=== PATIENT | male | born 1955 | race Hispanic/Latino ===

== ENCOUNTER 2016-11-20 16:26 | Emergency (ER) | payer OTHER ==
[2016-11-20 16:37] VITALS: BMI 30.8
[2016-11-20 16:49] VITALS: TEMP 99.1
--- NOTE | 2016-11-20 17:08 | ED PDOC ---
Arrival/HPI <SehyDesiree - Last Filed: 11/20/16 19:07> - General Historian: Patient - History of Present Illness Time/Duration: Other (see HPI) Quality: Aching Context: Home <Vandana Allen - Last Filed: 11/20/16 22:12> <Rolando Israel - Last Filed: 11/21/16 09:36> - General Chief Complaint: Abdominal Pain Time Seen by Provider: 11/20/16 17:06 - History of Present Illness Narrative History of Present Illness (Text): 11/20/16 17:08 This 61 yo male presents to this ED c/o periumbilical pain x 2 days. Patient stated he had similar pain x 7 days ago, which lasted for 2 days. Denies sob, cp, n/v, rectal bleeding or urinary symptoms. Patient admits pain is mild 06/16. (Vandana Allen) Past Medical History - Provider Review Nursing Documentation Reviewed: Yes - Infectious Disease Hx of Infectious Diseases: None - Cardiac Hx Hypertension: Yes - Endocrine/Metabolic Hx Diabetes Mellitus Type 2: Yes - Psychiatric Hx Substance Use: No <Vandana Allen - Last Filed: 11/20/16 22:12> Family/Social History - Physician Review Nursing Documentation Reviewed: Yes Family/Social History: No Known Family HX Smoking Status: Never Smoked Hx Alcohol Use: Yes Frequency of alcohol use: Socially Hx Substance Use: No <Vandana Allen - Last Filed: 11/20/16 22:12> Allergies/Home Meds <Desiree Kat - Last Filed: 11/20/16 19:07> <Vandana Allen - Last Filed: 11/20/16 22:12> <Rolando Israel - Last Filed: 11/21/16 09:36> Allergies/Adverse Reactions: Allergies No Known Allergies Allergy (Verified 11/20/16 16:37) Home Medications: Home Meds Medication Instructions Recorded Confirmed Valsartan/Hydrochlorothiazide 1 tab PO DAILY 11/20/16 11/20/16 [Diovan Hct 160-12.5 mg Tab] metFORMIN [glucOPHAGE] 500 mg PO BID 11/20/16 11/20/16 Review of Systems - Review of Systems Constitutional: Normal. absent: Fatigue, Weight Change, Fevers Eyes: Normal ENT: Normal Respiratory: Normal. absent: SOB Cardiovascular: Normal Gastrointestinal: Abdominal Pain. absent: Constipation, Diarrhea, Nausea, Vomiting Genitourinary Male: Normal. absent: Dysuria, Frequency, Hematuria Musculoskeletal: Normal Skin: Normal Neurological: Normal. absent: Headache, Dizziness Endocrine: Normal Hemo/Lymphatic: Normal Psychiatric: Normal <Vandana Allen - Last Filed: 11/20/16 22:12> Medical Decision Making <Desiree Kat - Last Filed: 11/20/16 19:07> Re-evaluation Time: 22:16 Reassessment Condition: Re-examined, Improved <Vandana Allen - Last Filed: 11/20/16 22:12> <Rolando Israel - Last Filed: 11/21/16 09:36> ED Course and Treatment: 11/20/16 19:08 Patient seen and evaluated with PA. Patient denies any chest pain or shortness of breath. Symptoms not associated with exertion. Symptoms not associated with lightheadedness or dizziness. He is a diabetic and reports family hx of MD/CAD in father and uncles. He has had cardiac stress test over past year that was unremarkable reportedly. He reports sudden onset of pain "all over stomach" that occurred while at sleep and patient states there was no associated back pain or nausea or vomiting or diarrhea or urinary symptoms. Symptoms improved until this AM at 5 am sudden onset of abdominal pain, not severe, not exertional. Patient at this time is resting comfortable. Abdomen is soft with no pulsatile masses, negative Muñoz's sign, no rebound or guarding, no chest pain, no urinary symptoms. EKG and cardiac enzymes ordered. Patient will also have ultrasound based on CT findings, which I reviewed with patient. (Desiree Kat) 11/20/16 22:12 vice president corporate communications came to evaluate patient. I also spoke with Dr. South who reviewed CT scan and ultrasound report, as well as labs. She feels patient can be discharge home, and to call her office on Wednesday. vice president corporate communications agrees with plan to d/c patient home. He said family of patient prefers to f/u with Dr. John. Patient understands recommendation. (Vandana Allen) 11/21/16 09:35 Dr. Layne reports that pt may have a small gallstone at neck of GB. called pt's phone provided, states mailbox is full, unable to leave message. (Rolando Israel) - Lab Interpretations Lab Results: 11/20/16 17:45 11/20/16 17:45 Lab Results 11/20/16 19:00: Lactate Dehydrogenase 574, Total Creatine Kinase 114, Troponin I < 0.01 11/20/16 18:25: Urine Color Yellow, Urine Appearance Clear, Urine pH 6.0, Ur Specific [place] 1.020, Urine Protein Negative, Urine Glucose (UA) Negative, Urine Ketones Negative, Urine Blood Negative, Urine Nitrate Negative, Urine Bilirubin Negative, Urine Urobilinogen 0.2, Ur Leukocyte Esterase Negative 11/20/16 17:45: Sodium 137, Potassium 3.7, Chloride 101, Carbon Dioxide 27, Anion Gap 13, BUN 18, Creatinine 1.0, Est GFR ( Amer) > 60, Est GFR (Non- Af Amer) > 60, Random Glucose 115 H, Calcium 9.6, Total Bilirubin 0.7, AST 45, ALT 73 H, Alkaline Phosphatase 88, Total Protein 7.3, Albumin 4.4, Globulin 2.9 , Albumin/Globulin Ratio 1.5, Lipase 149 11/20/16 17:45: WBC 10.3, RBC 5.17, Hgb 16.6, Hct 46.1, MCV 89.2, MCH 32.1, MCHC 36.0, RDW 13.0, Plt Count 240, MPV 9.3, Gran % 59.5, Lymph % (Auto) 29.9, [place] % (Auto) 6.8 H, Eos % (Auto) 3.6, Baso % (Auto) 0.2, Gran # 6.13, Lymph # 3.1, [place] # 0.7 H, Eos # 0.4, Baso # 0.02 - RAD Interpretation Narrative RAD Interpretations (Text): 11/20/16 18:50 Accession No. : [id number] Patient Name / ID : [id number] MCDONNELL / [id number] Exam Date : 11/20/2016 18:02:07 ( Approved ) Study Comment : Sex / Age : M / 61Y Creator : Oumar HARRIS Dictator : Kyler Holbrook MD Undercover Operator : Mandrel Puller : Kyler Holbrook MD Approver2 : Report Date : 11/20/2016 18:14:04 My Comment : PROCEDURE: CT Abdomen and Pelvis without intravenous contrast HISTORY: niurka-umbilical pain COMPARISON: None. TECHNIQUE: Technique. Contrast Dose: Unenhanced study. Neither oral nor intravenous contrast administered. Sensitivity and specificity for acute inflammatory processes limited by the absence of oral and intravenous contrast. Radiation dose: Total exam DLP = 945.55 mGy-cm. This CT exam was performed using one or more of the following dose reduction techniques: Automated exposure control, adjustment of the mA and/or kV according to patient size, and/or use of iterative reconstruction technique. FINDINGS: LOWER THORAX: Unremarkable. LIVER: Unremarkable. No gross lesion or ductal dilatation. GALLBLADDER AND BILE DUCTS: Questionable polyp or focal wall thickening in the gallbladder. No internal abnormalities. Follow-up elective ultrasound recommended. PANCREAS: Unremarkable. No gross lesion or ductal dilatation. SPLEEN: Unremarkable. ADRENALS: Unremarkable. No mass. KIDNEYS AND URETERS: Unremarkable. No hydronephrosis. No solid mass. VASCULATURE: Unremarkable. No aortic aneurysm. BOWEL: Unremarkable. No obstruction. No gross mural thickening. Diverticulosis without an acute inflammatory component or other associated pathologic process. APPENDIX: Unremarkable. Normal appendix. PERITONEUM: Unremarkable. No free fluid. No free air. LYMPH NODES: Unremarkable. No enlarged lymph nodes. BLADDER: Unremarkable. REPRODUCTIVE: Unremarkable. BONES: No acute fracture. OTHER FINDINGS: None. IMPRESSION: No acute findings related to/accounting for the clinical presentation. Focal gallbladder wall thickening. Elective gallbladder ultrasound recommended. 11/20/16 21:15 EXAM: US Abdomen Complete CLINICAL HISTORY: 61 years old, male; Pain; Abdominal pain FINDINGS: Liver: Liver is diffusely increased in echogenicity and enlarged, most commonly seen in hepatic steatosis, though other forms of parenchymal liver disease could have a similar appearance. This limits evaluation for subtle isoechoic masses but no masses are seen. No intrahepatic bile duct dilation. Gallbladder: Gallbladder is thickwalled. No gallstones or pericholecystic fluid. The technologist reports a negative sonographic Muñoz's sign. Common bile duct: Unremarkable as visualized. No stones. No dilation. Pancreas: Pancreas is not well-seen due to overlying bowel gas. The visualized pancreas is unremarkable. Kidneys: No hydronephrosis or nephrolithiasis. Spleen: Mild splenomegaly. Aorta: Unremarkable. No aneurysm. Inferior vena cava: Unremarkable. IMPRESSION: Page 2 of 2 1. Thickwalled gallbladder without stones seen or sonographic Muñoz sign reported. When correlated to the CT, there is a calcification within the cystic duct and the findings remain suspicious for cholecystitis. 2. Hepatic steatosis. Mild hepatosplenomegaly. Thank you for allowing us to participate in the care of your patient. Dictated and Authenticated by: Dominick Gallo (Vandana Allen) Radiology Orders: 11/20/16 17:24 ABD & PELVIS W/O PO OR IV CONT [CT] Stat 11/20/16 19:00 ABDOMEN COMPLETE [US] Stat - Medication Orders Current Medication Orders: Discontinued Medications Famotidine (Pepcid) 20 mg IVP STAT STA Stop: 11/20/16 17:25 Last Admin: 11/20/16 18:02 Dose: 20 mg Sodium Chloride (Sodium Chloride 0.9%) 1,000 mls @ 1,000 mls/hr IV .Q1H STA Stop: 11/20/16 18:23 Last Admin: 11/20/16 18:03 Dose: 1,000 mls/hr - PA / STEREOTYPE CASTER / Resident Statement / has reviewed & agrees with the documentation as recorded. / has examined the patient and agrees with the treatment plan. <Desiree Kat - Last Filed: 11/20/16 19:07> Disposition/Present on Arrival <Desiree Kat - Last Filed: 11/20/16 19:07> - Present on Arrival Any Indicators Present on Arrival: No History of DVT/PE: No History of Uncontrolled Diabetes: No Urinary Catheter: No History of Decub. Ulcer: No History Surgical Site Infection Following: None - Disposition Have Diagnosis and Disposition been Completed?: Yes Disposition Time: 22:18 Patient Plan: Discharge <Vandana Allen - Last Filed: 11/20/16 22:12> <Rolando Israel - Last Filed: 11/21/16 09:36> - Disposition Diagnosis: Abdominal pain, Gallbladder calculus Disposition: HOME/ ROUTINE Condition: GOOD Discharge Instructions (ExitCare): Biliary Colic (ED), Abdominal Pain (ED) Additional Instructions: Call Dr. John office for follow visit in 1-2 days. Return to emergency if symptoms worsen. Take medication as instructed. Prescriptions: oxyCODONE/Acetaminophen [Percocet 5/325 mg Tab] 1 ea PO BID PRN #5 tab PRN Reason: Pain, Severe (8-10) Referrals: Charlie John MD [Staff Provider] - Follow up with primary Jesus Amaya MD [Primary Care Provider] - Follow up with primary Bella South MD [Staff Provider] - Follow up with primary Forms: WORK NOTE
[2016-11-20] MEDS ORDERED: Sodium Chloride 0.9% 1,000 ML IV STA (17:24)
[2016-11-20 18:00] LABS: ADD MANUAL DIFF? NO
[2016-11-20 18:16] LABS: ALB/GLOB RATIO 1.5 (1.1-1.8); ALKALINE PHOSPHATASE 88 U/L (38-133); ALT/SGPT 73 U/L (7-56); AST/SGOT 45 U/L (15-59); BILIRUBIN,TOTAL 0.7 mg/dL (0.2-1.3); BLOOD UREA NITROGEN 18 mg/dL (7-21); CALCIUM 9.6 mg/dL (8.4-10.5); CARBON DIOXIDE 27 mmol/L (21-33); CHLORIDE 101 mmol/L (98-107); GFR AFRICAN-AMERICAN > 60; GLUCOSE,RANDOM 115 mg/dL (70-110); LIPASE 149 U/L (23-300); POTASSIUM 3.7 mmol/L (3.6-5.0); SODIUM 137 mmol/L (132-148); TOTAL PROTEIN 7.3 g/dL (5.8-8.3)
[2016-11-20 18:28] LABS: BASO # 0.02 K/mm3 (0.0-2.0); BASO % 0.2 % (0.0-3.0); EOS # 0.4 (0.0-0.7); EOS % 3.6 % (1.5-5.0); GRAN # 6.13 (1.4-6.5); GRAN % 59.5 % (50.0-68.0); HEMATOCRIT 46.1 % (42.0-52.0); LYMPH # 3.1 (1.2-3.4); LYMPH % 29.9 % (22.0-35.0); MEAN CELL VOLUME 89.2 fL (80.0-105.0); MEAN CORPUSCULAR HEMOGLOBIN 32.1 pg (25.0-35.0); MEAN PLATELET VOLUME 9.3 fl (7.0-11.0); MONO # 0.7 (0.1-0.6); MONO % 6.8 % (1.0-6.0); PLATELET COUNT 240 10^3/uL (120.0-450.0); WHITE BLOOD COUNT 10.3 10^3/ul (4.5-11.0)
[2016-11-20 18:38] LABS: URINE BILIRUBIN NEGATIVE (NEGATIVE); URINE BLOOD NEGATIVE (NEGATIVE); URINE GLUCOSE (UA) NEGATIVE (NEGATIVE); URINE KETONE NEGATIVE (NEGATIVE); URINE LEUKOCYTE ESTERASE NEGATIVE Leu/uL (NEGATIVE); URINE PROTEIN NEGATIVE mg/dL (<30 mg/dL); URINE UROBILINOGEN 0.2 E.U./dL (<1 E.U./dL)
--- NOTE | 2016-11-20 18:42 | CT ---
PROCEDURE: CT Abdomen and Pelvis without intravenous contrast HISTORY: niurka-umbilical pain COMPARISON: None. TECHNIQUE: Technique. Contrast Dose: Unenhanced study. Neither oral nor intravenous contrast administered. Sensitivity and specificity for acute inflammatory processes limited by the absence of oral and intravenous contrast. Radiation dose: Total exam DLP = 945.55 mGy-cm. This CT exam was performed using one or more of the following dose reduction techniques: Automated exposure control, adjustment of the mA and/or kV according to patient size, and/or use of iterative reconstruction technique. FINDINGS: LOWER THORAX: Unremarkable. LIVER: Unremarkable. No gross lesion or ductal dilatation. GALLBLADDER AND BILE DUCTS: Questionable polyp or focal wall thickening in the gallbladder. No internal abnormalities. Follow-up elective ultrasound recommended. PANCREAS: Unremarkable. No gross lesion or ductal dilatation. SPLEEN: Unremarkable. ADRENALS: Unremarkable. No mass. KIDNEYS AND URETERS: Unremarkable. No hydronephrosis. No solid mass. VASCULATURE: Unremarkable. No aortic aneurysm. BOWEL: Unremarkable. No obstruction. No gross mural thickening. Diverticulosis without an acute inflammatory component or other associated pathologic process. APPENDIX: Unremarkable. Normal appendix. PERITONEUM: Unremarkable. No free fluid. No free air. LYMPH NODES: Unremarkable. No enlarged lymph nodes. BLADDER: Unremarkable. REPRODUCTIVE: Unremarkable. BONES: No acute fracture. OTHER FINDINGS: None. IMPRESSION: No acute findings related to/accounting for the clinical presentation. Focal gallbladder wall thickening. Elective gallbladder ultrasound recommended.
[2016-11-20 18:47] LABS: URINE APPEARANCE CLEAR (CLEAR); URINE COLOR YELLOW (YELLOW)
[2016-11-20 20:59] LABS: TROPONIN I < 0.01 ng/mL
[2016-11-20 21:07] VITALS: BP 141/89; PULSE 67; RESP 17; O2SAT 100
--- NOTE | 2016-11-21 09:41 | US ---
HISTORY: abdominal pain COMPARISON: None available. TECHNIQUE: Sonographic evaluation of the abdomen. FINDINGS: LIVER: Measures approximately 17.3 x 13.9 cm. Echogenic liver may be seen in setting of hepatic parenchymal disease or fatty infiltration. No focal hepatic mass identified. The main portal vein appears patent with normal directional flow. No intrahepatic bile duct dilatation. GALLBLADDER: No gallstones. The gallbladder wall appears thickened measuring approximately 6 mm. Negative sonographic Muñoz's sign as assessed by the director on air. COMMON BILE DUCT: Measures 4 mm. PANCREAS: Not well visualized. RIGHT KIDNEY: Measures 10.5 x 4.4 x 5.4cm. No obstructing calculus or hydronephrosis identified. LEFT KIDNEY: Measures 11.5 x 6.5 x 6.3 cm. No obstructing calculus or hydronephrosis identified. SPLEEN: Measures approximately 14.4 cm. AORTA: Limited views appear unremarkable. IVC: Limited views appear unremarkable. OTHER FINDINGS: None. IMPRESSION: In retrospect, there is a punctate calcification at the cystic duct on CT performed the same day measuring no greater than 3 mm. This is not evident on ultrasound. Gallbladder wall thickening. No evidence of gallstones on this study. Negative sonographic Muñoz's sign as assessed by the director on air. Correlate clinically in order to exclude cholecystitis. Echogenic liver may be seen in setting of hepatic parenchymal disease or fatty infiltration. Hepatosplenomegaly. Preliminary impression was provided by virtual radi[employer].
--- NOTE | 2016-11-21 15:59 | CARD ---
APPROVED REPORT EKG Measurement Heart [id number] <Conclusion> Normal sinus rhythm Right bundle branch block Abnormal ECG
== END 2016-11-20 22:25 | disposition home or self-care (01) ==
LOC: ED 16:26
DX: K80.20 Calculus of gallbladder without cholecystitis without obstruction (principal); I10 Essential (primary) hypertension
CPT/HCPCS: 74176; 76700; 80053; 81003; 82550; 83615; 83690; 84484; 85025; 93005; 96374; 99283; J7040